=== PATIENT | female | born 1970 | race Caucasian/White ===

== ENCOUNTER 2017-01-07 01:31 | Inpatient (IN) | payer OTHER ==
[2017-01-07] MEDS ORDERED: VENTOLIN HFA 66.7 GM INH (01:50)
[2017-01-07] MEDS ORDERED: VITAMIN D32000 UNIT PO (01:51)
[2017-01-07] MEDS ORDERED: VITAMIN B-121000 MC3 PO (01:52)
[2017-01-07] MEDS ORDERED: LASIX 40 MG TAB40 MG PO (01:53)
[2017-01-07] MEDS ORDERED: ADVAIR 500-501 EACH INH (01:53)
[2017-01-07] MEDS ORDERED: LEVAQUIN750 MG PO (01:54)
[2017-01-07] MEDS ORDERED: NEURONTIN 400400 MG PO (01:54)
[2017-01-07] MEDS ORDERED: ZESTRIL5 MG PO (01:55)
[2017-01-07] MEDS ORDERED: POTASSIUM CHLO10 ME2 PO (01:55)
[2017-01-07] MEDS ORDERED: SPIRIVA18 MCG INH (01:56)
[2017-01-07] MEDS ORDERED: ALBUTEROL0.63 MG/3 INH (01:57)
[2017-01-07] MEDS ORDERED: TOPAMAX50 MG PO (01:57)
[2017-01-07 04:42] LABS: HEMOGLOBIN 10.7 gm/dl (12.3-15.3); RED BLOOD COUNT 3.99 M/UL (4.00-5.10); WHITE BLOOD COUNT 15.7 K/UL (4.5-11.0)
[2017-01-07 05:03] LABS: BUN/CREATININE RATIO 22 (0-10)
[2017-01-08 04:46] LABS: HEMOGLOBIN 9.5 gm/dl (12.3-15.3); RED BLOOD COUNT 3.63 M/UL (4.00-5.10); WHITE BLOOD COUNT 16.4 K/UL (4.5-11.0)
[2017-01-08 05:02] LABS: BUN/CREATININE RATIO 24 (0-10)
== END 2017-01-08 14:41 | disposition home or self-care (01) | DRG 189 ==
LOC: CCU 01:31
PROVIDERS: ADMIT Internal Medicine
DX: J96.22 Acute and chronic respiratory failure with hypercapnia (principal); E66.2 Morbid (severe) obesity with alveolar hypoventilation; J96.21 Acute and chronic respiratory failure with hypoxia; J44.9 Chronic obstructive pulmonary disease, unspecified; J02.9 Acute pharyngitis, unspecified; G89.29 Other chronic pain; M54.2 Cervicalgia; M54.9 Dorsalgia, unspecified; Z98.890 Other specified postprocedural states; J39.8 Other specified diseases of upper respiratory tract; F32.9 Major depressive disorder, single episode, unspecified; I10 Essential (primary) hypertension; G62.9 Polyneuropathy, unspecified; E88.01 Alpha-1-antitrypsin deficiency; D64.9 Anemia, unspecified; E16.2 Hypoglycemia, unspecified; Z87.891 Personal history of nicotine dependence; Z79.891 Long term (current) use of opiate analgesic; Z88.0 Allergy status to penicillin; Z88.2 Allergy status to sulfonamides; Z91.018 Allergy to other foods; Z79.51 Long term (current) use of inhaled steroids; Z79.899 Other long term (current) drug therapy; Z99.81 Dependence on supplemental oxygen; Z90.49 Acquired absence of other specified parts of digestive tract; K21.9 Gastro-esophageal reflux disease without esophagitis; Z82.5 Family history of asthma and other chronic lower respiratory diseases; Z80.9 Family history of malignant neoplasm, unspecified
CPT/HCPCS: ECHO; 36415; 36600; 71010; 80053; 80307; 82550; 82553; 82607; 82803; 83036; 83735; 84439; 84443; 84484; 85025; 85610; 85730; 87040; 87081; 87086; 87880; 93005; 93306; 94640; 94660; 94664; J1956